=== PATIENT | male | born 1945 | race African-American/Black ===

== ENCOUNTER 2019-04-11 00:49 | Inpatient (IN) | payer MEDICARE, BC ==
[2019-04-11 02:54] LABS: #Basophils 0.1 thou/uL (0.0-0.2); #Eosinphils 0.1 thou/uL (0.0-0.7); #Lymphocytes 1.6 thou/uL (1.20-3.40); #Monocytes 1.3 thou/uL (0.11-0.59); #Neutrophils 10.4 thou/uL (1.40-6.50); %Basophils 0.8 % (0.0-1.0); %Eosinophils 0.6 % (0.0-10.0); %Lymphocytes 12.1 % (21.0-51.0); %Monocytes 9.4 % (0.0-10.0); Mean Corpuscular HGB CONC 34.5 g/dL (32.0-36.0); Mean Corpuscular Hemoglobin 29.9 pg (27.0-31.0); Mean Corpuscular Volume 86.7 fL (78.0-98.0); Mean Platelet Volume 5.9 fL (7.4-10.4); Platelet Count 408 thou/uL (130-400); RBC Distribution Width 11.6 % (11.5-14.5); Red Blood Cell (RBC) Count 5.35 mill/uL (4.70-6.10); White Blood Cell (WBC) Count 13.5 thou/uL (4.8-10.8)
[2019-04-11 03:24] LABS: ALT (SGPT) 13 U/L (8-55); AST (SGOT) 21 U/L (5-34); Albumin 4.7 g/dL (3.4-4.8); Alkaline Phosphatase 76 U/L (40-150); Anion Gap 15 mmol/L (10-20); BUN (Urea Nitrogen) 6 mg/dL (8.4-25.7); Bilirubin, Total 1.1 mg/dL (0.2-1.2); Calc. Creatinine Clearance 0 mL/min (70-130); Calcium 10.2 mg/dL (7.8-10.44); Carbon Dioxide 27 mmol/L (23-31); Chloride 82 mmol/L (98-107); Estimated GFR-MDRD Greater than 90; Globulin 3.6 g/dL (2.4-3.5); Glucose 127 mg/dL (83-110); Potassium 3.8 mmol/L (3.5-5.1); Protein, Total 8.3 g/dL (5.8-8.1); Sodium 120 mmol/L (136-145)
[2019-04-11] MEDS ORDERED: Ondansetron PF 4 MG/2 ML Vial IVP PRN (05:27)
[2019-04-11] MEDS ORDERED: Acetaminophen 325 MG TAB PO PRN (05:27)
[2019-04-11] MEDS ORDERED: Ondansetron ODT 4 MG TAB PO PRN (05:27)
--- NOTE | 2019-04-11 06:02 | PDOC.EVN ---
Event Note - Event Note Event Note: orders cancelled, we do not admit for PT's PCP
[2019-04-11 07:42] LABS: Troponin I Less than 0.010 ng/mL (< 0.028)
[2019-04-11 07:47] VITALS: BMI 21.8
[2019-04-11] MEDS ORDERED: hydrALAZINE 20 MG/ML VIAL SLOW IVP PRN (08:42)
[2019-04-11] MEDS ORDERED: Lorazepam 2 MG/ML VIAL SLOW IVP PRN (08:44)
[2019-04-11] MEDS ORDERED: Enoxaparin Sodium 40 MG/0.4 ML SYRINGE SC SCH (09:00)
[2019-04-11 09:34] LABS: Anion Gap 14 mmol/L (10-20); BUN (Urea Nitrogen) 4 mg/dL (8.4-25.7); Calc. Creatinine Clearance 107 mL/min (70-130); Calcium 9.6 mg/dL (7.8-10.44); Carbon Dioxide 22 mmol/L (23-31); Chloride 90 mmol/L (98-107); Estimated GFR-MDRD Greater than 90; Glucose 121 mg/dL (83-110); Potassium 3.2 mmol/L (3.5-5.1); Sodium 123 mmol/L (136-145)
[2019-04-11 09:52] LABS: Troponin I 0.011 ng/mL (< 0.028)
[2019-04-11] MEDS: hydrALAZINE 25 MG TAB PO SCH ×3 (10:06→21:13)
[2019-04-11] MEDS: Thiamine 100 MG TAB PO SCH (10:07)
[2019-04-11] MEDS: Amlodipine 5 MG TAB PO SCH (10:07)
[2019-04-11] MEDS: Folic Acid 1 MG TAB PO SCH (10:07)
[2019-04-11] MEDS: Multivit, Therapeutic 1 TAB PO SCH (10:07)
[2019-04-11] MEDS: Aspirin Chewable 81 MG TAB PO SCH (10:07)
[2019-04-11 10:57] LABS: Creatinine, Urine 28.25 mg/dL (63-166)
[2019-04-11] MEDS ORDERED: Potassium Chloride 20 MEQ TAB PO SCH (11:00)
--- NOTE | 2019-04-11 11:36 | CON ---
DATE OF CONSULTATION: HISTORY OF PRESENT ILLNESS: Mr. Grimaldo is a 74-year-old black male with known history of chronic hyponatremia, who was admitted due to serum sodium of 120. This is a little worse than his baseline. Of interest, this patient has been taking alcohol on a regular basis. He states he takes about 5 beers a day, but I suspect he is taking more than this. We are here to further evaluate the hyponatremia. I did review his previous lab work and he has been shown to be chronically hyponatremic. He is clinically asymptomatic. REVIEW OF SYSTEMS: No chest pain. No shortness of breath. No diarrhea. No constipation. ? of hematochezia from his hemorrhoids. No fever or chills. No nausea. No vomiting. Appetite and energy level are fair. No tremors. No asterixis. Occasional joint pains. No abdominal pain. No fever or chills. No headache. No diplopia. MEDICATIONS: 1. Norvasc 5 mg daily. 2. Aspirin 81 mg daily. 3. Folvite 1 mg daily. 4. Hydralazine 25 mg p.o. t.i.d. 5. Ativan 1 mg q.4 p.r.n. 6. Toprol-XL 50 mg p.o. b.i.d. 7. Multivitamin daily. 8. Thiamine 100 mg p.o. daily. PAST MEDICAL HISTORY: Hypertension, status post chronic sinusitis, erectile dysfunction, heavy alcohol intake. PAST SURGICAL HISTORY: Status post total ethmoidectomies, status post frontal sinusotomy, status post maxillary antrostomies. 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 He is a -[employer]. Smoked for 30 to 40 years, 1 pack a day. Alcohol, about 5 beers per day. Education, high school. ALLERGIES: NONE. TRAUMA: None. IMMUNIZATION: Unknown. HOSPITALIZATIONS: Please see past medical history. FAMILY HISTORY: Positive family history of ESRD, 1 brother on dialysis. PHYSICAL EXAMINATION: VITAL SIGNS: Blood pressure is noted at 179/83, heart rate 89, respiratory rate 14, temperature 97.5, and pulse ox 99%. GENERAL: Noted to be awake, alert, sitting comfortable, not in distress. SKIN: Adequate turgor. HEENT: Pinkish conjunctivae. Anicteric sclerae. NECK: No neck mass. No carotid bruits. No JVD. CHEST: No deformities. LUNGS: Clear breath sounds. No wheezing. No crackles. HEART: Normal sinus rhythm. No murmur. No gallops. No rubs. ABDOMEN: Globular, soft, nontender. No masses. EXTREMITIES: No edema. No deformities. NEUROLOGICAL: Awake and oriented to 3 spheres. Moving all extremities. No tremors. No asterixis. No ataxia. LABORATORY DATA: Laboratories of April 11, 2019; sodium 123, potassium 3.2, chloride 90, carbon dioxide 22, BUN 4, creatinine 0.68, glucose 121, and calcium 9.6. Troponin I 0.011. April 11, 2019, 2:47 a.m., serum sodium was 120. February 18, 2019, serum sodium was 124. November 19, 2018, TSH was noted at 1.39. ASSESSMENT/PLAN: 1. Chronic hyponatremia-this could be related to alcohol induced. He does take significant amount of alcohol beverage. I did instruct him that he needs to wean off. He was somewhat hesitant to do this outright. Continue free water restriction at least 1.1 to 1.5 L of free water restriction. Serological workup will be ordered to rule out other possible causes of hyponatremia. Cortisol level, uric acid, and serum urine osmolality have been ordered. In addition, a urine sodium, urine creatinine were also ordered. Please note, a TSH was done early this year and it was within normal. There is no indication for any hypertonic saline with this patient since he is completely asymptomatic. 2. Hypertension. Continue current BP medications. 3. We will recheck basic metabolic profile in a.m. Job ID: [id number]
--- NOTE | 2019-04-11 14:57 | HP ---
PRIMARY CARE PHYSICIAN: Dr. Eduard Hansen. CHIEF COMPLAINT: Weakness, dizziness. HISTORY OF PRESENT ILLNESS: This is a 74-year-old gentleman patient of Dr. Eduard Hansen who last saw him in February 2019 who presented to the emergency department with sudden onset of feeling weak, dizzy, and confused at about 11:00 p.m. last night. The patient states that he had been in his usual state of health. He does admit to regular alcohol intake, usually including beer about 5-6 everyday. After discussion with Dr. Hansen, he recently has begun to cut down to 1-2 a day over the past few days. In the emergency department, he was found to have a low sodium level of 120 and is now being admitted for further evaluation of that. The patient has been seen by Dr. Hansen as an outpatient for blood in his stool. He had scheduled outpatient colonoscopy, but uncertain to when it is to be. He states that he has not had any further blood in his stool lately. Has not had colon cancer screening in the past either. PAST MEDICAL HISTORY: Hypertension, alcohol abuse, marijuana abuse, chronic sinusitis, history of hyponatremia in the past. MEDICATIONS: Include: 1. Metoprolol 50 mg b.i.d. 2. Amlodipine 5 mg daily. 3. Hydrochlorothiazide 25 mg daily. 4. Lamisil. 5. Hydralazine 25 mg t.i.d. 6. Viagra p.r.n. ALLERGIES: NO KNOWN DRUG ALLERGIES. PAST SURGICAL HISTORY: Bilateral sinus surgery, total ethmoidectomies, maxillary surgeries, frontal sinusotomy by Dr. Negrito Macdonald, cystoscopy with bladder wash in 2014. FAMILY HISTORY: Mother and father . Brother with end-stage renal disease from diabetes. SOCIAL HISTORY: He does not work. Positive for daily beer intake 4-5 a day, daily marijuana use. No cocaine. No IV drugs. Retired from the [employer]. REVIEW OF SYSTEMS: As per the history of present illness. CONSTITUTIONAL: He denies any recent fevers, chills, or recent illness. HEENT: He denies headache, visual or hearing changes. No recent upper respiratory symptoms. CARDIAC: Denies chest pain, shortness of breath or palpitations. PULMONARY: Denies cough or hemoptysis. GI: Denies nausea, vomiting, abdominal pain, melena, hematochezia. : Denies dysuria, hematuria. NEUROLOGIC: Positive generalized weakness and dizziness, some confusion, which appears to have resolved. PHYSICAL EXAMINATION: VITAL SIGNS: Temperature 97.5, pulse of 99, respirations 14, blood pressure 187/87, but has not taken his medicines in the last few days. GENERAL: He is awake and alert. Speech is clear. Mucosa is moist. NECK: Supple. HEART: Regular rate and rhythm. LUNGS: Clear. ABDOMEN: Soft. No rebound. No guarding. No peritoneal signs. EXTREMITIES: No clubbing, cyanosis, or edema. 2+ peripheral pulses. LABORATORY DATA: From last night, sodium 120, potassium 3.8, chloride 82, CO2 27, BUN and creatinine 6 and 0.81, GFR greater than 90, glucose of 127, calcium of 10.2. AST and ALT are normal. Troponin Is are negative. Albumin 4.7. White blood cell count 13,500, hemoglobin hematocrit 16 and 46.4, and platelets of 408. ASSESSMENT/PLAN: 1. This is a 74-year-old gentleman with a history of uncontrolled hypertension, alcohol abuse and regular marijuana intake, who presents with recurrent episode of hyponatremia. Plan: We will place on fluid restriction orally as well as normal saline drip and monitor closely for slow resolution of his sodium level. We will also check urine osmolality to watch for his sodium deficit. 2. Hypertension. We will restart his medicines and start hydralazine p.r.n. We will discontinue hydrochlorothiazide to help prevent hyponatremia. 3. Regular beer intake, likely contributing to the hyponatremia. I will watch for withdrawal symptoms and start Ativan p.r.n. agitation. We will also start multivitamin, thiamine and folic acid. 4. Remote history of blood in his stool. I will follow hemoglobin hematocrit. We will consult Gastroenterology for colonoscopy if he has positive guaiac in his stool or if he becomes more anemic. Job ID: [id number]
[2019-04-12 04:52] LABS: #Basophils 0.1 thou/uL (0.0-0.2); #Eosinphils 0.3 thou/uL (0.0-0.7); #Lymphocytes 1.8 thou/uL (1.20-3.40); #Neutrophils 8.5 thou/uL (1.40-6.50); %Basophils 0.7 % (0.0-1.0); %Eosinophils 2.5 % (0.0-10.0); %Lymphocytes 15.7 % (21.0-51.0); %Monocytes 8.4 % (0.0-10.0); %Neutrophils 72.7 % (42.0-75.0); Hemoglobin 14.3 g/dL (14.0-18.0); Mean Corpuscular HGB CONC 34.2 g/dL (32.0-36.0); Mean Corpuscular Hemoglobin 30.1 pg (27.0-31.0); Mean Corpuscular Volume 87.8 fL (78.0-98.0); Platelet Count 395 thou/uL (130-400); RBC Distribution Width 11.7 % (11.5-14.5); Red Blood Cell (RBC) Count 4.77 mill/uL (4.70-6.10); White Blood Cell (WBC) Count 11.7 thou/uL (4.8-10.8)
[2019-04-12 05:13] LABS: ALT (SGPT) 13 U/L (8-55); AST (SGOT) 16 U/L (5-34); Albumin 3.9 g/dL (3.4-4.8); Alkaline Phosphatase 63 U/L (40-150); Anion Gap 14 mmol/L (10-20); BUN (Urea Nitrogen) 10 mg/dL (8.4-25.7); Bilirubin, Total 0.6 mg/dL (0.2-1.2); Calc. Creatinine Clearance 80 mL/min (70-130); Calcium 9.5 mg/dL (7.8-10.44); Carbon Dioxide 22 mmol/L (23-31); Chloride 95 mmol/L (98-107); Estimated GFR-MDRD Greater than 90; Globulin 3.4 g/dL (2.4-3.5); Glucose 141 mg/dL (83-110); Potassium 3.6 mmol/L (3.5-5.1); Protein, Total 7.3 g/dL (5.8-8.1); Sodium 127 mmol/L (136-145); Uric Acid 5.4 mg/dL (3.5-7.2)
[2019-04-12] MEDS: hydrALAZINE 25 MG TAB PO SCH (09:22)
[2019-04-12] MEDS: Aspirin Chewable 81 MG TAB PO SCH (09:22)
[2019-04-12] MEDS: Multivit, Therapeutic 1 TAB PO SCH (09:23)
[2019-04-12] MEDS: Folic Acid 1 MG TAB PO SCH (09:23)
[2019-04-12] MEDS: Thiamine 100 MG TAB PO SCH (09:23)
[2019-04-12] MEDS: Amlodipine 5 MG TAB PO SCH (09:23)
--- NOTE | 2019-04-12 09:54 | PRG ---
DATE OF SERVICE: 04/12/2019 SUBJECTIVE: Mr. Grimaldo is a 74-year-old black male, who was seen for his chronic hyponatremia. We felt that his hyponatremia is alcohol induced. I had a long discussion with the patient regarding discontinuing alcohol. He will try to comply with this. No new complaints today. No chest pain or shortness of breath. OBJECTIVE: VITAL SIGNS: Blood pressure 144/74, heart rate 72, respiratory rate 18, temperature 98.7, and pulse ox 95%. GENERAL: Awake, alert, and comfortable, not in distress. SKIN: Adequate turgor. HEENT: He has pinkish conjunctivae. Anicteric sclerae. NECK: No neck mass. No carotid bruits. No JVD. CHEST: No deformities. LUNGS: Clear breath sounds. No wheezing. No crackles. HEART: Normal sinus rhythm. No murmur. No gallops. No rubs. ABDOMEN: Globular, soft, and nontender. No masses. EXTREMITIES: No edema. No deformities. MEDICATIONS: Medications of April 12, 2019, reviewed. LABORATORY DATA: Laboratories of April 12, 2019, white count 11.7 and hemoglobin 14.3. Sodium 127, potassium 3.6, chloride 95, carbon dioxide 22, BUN is 10, creatinine 0.91, glucose 141, uric acid 5.4, normal calcium 9.5, AST 16, ALT 13, and albumin 3.9. TSH 1.5. Cortisol level 9.5. Urine sodium is 63 and urine creatinine is 28. ASSESSMENT AND PLAN: Hyponatremia - chronic in nature. Continue free water restriction. This is most likely alcohol-induced. There is already significant improvement in the serum sodium from a low of 120 to a most recent value of 127 with free water restriction. There is no indication for any hypertonic saline or tolvaptan for the moment. Again, reinforced on alcohol reduction with this patient or cessation from alcoholic intake. Long discussion was done with the patient. Agree with current management. Recheck basic metabolic in a.m. or consider for discharge today. Job ID: [id number]
[2019-04-12 11:32] VITALS: BP 119/71; TEMP 97.8
--- NOTE | 2019-04-12 13:08 | DIS ---
DATE OF ADMISSION: 04/11/2019 DATE OF DISCHARGE: 04/12/2019 PRIMARY CARE PHYSICIAN: Dr. Eduard Hansen. ADMISSION DIAGNOSES: 1. Hyponatremia. 2. Hypertension. 3. Alcohol abuse. 4. History of blood in stool. DISCHARGE DIAGNOSIS: Hyponatremia, improved. OTHER DIAGNOSES: 1. Onychomycosis. 2. Rash and hives. CONSULTATION: Dr. Mau Clinton for Nephrology. HOSPITAL COURSE: This is a 74-year-old gentleman, who presented to the emergency department with complaints of feeling weak and dizzy and confused. He states that he has been slowly cutting down on his beer intake from 5 to 6 everyday down to 1 to 2. In the emergency department, he was found to have a sodium of 120 and was admitted for further evaluation of that. As of note, he had been undergoing a workup for blood in his stool for the past several months. He has outpatient colonoscopy scheduled. Of note, he also has had a rash on and off, uncertain if it is due to medications. This has been worked up by Dr. Hansen as an outpatient as well. The patient was admitted. He was placed on 1500 mL fluid restriction. No hyponatremic fluids were necessary. Dr. Clinton saw the patient in evaluation, agreed with fluid restriction, and his sodium continued to improve slowly. The patient tolerated it well. No signs of mental status change. He seemed to improve. Throughout his hospitalization, his blood pressure remained stable as well. Hydrochlorothiazide was discontinued to try to avoid the hyponatremia as well. No further episodes of blood in the stool during the hospitalization. Once his sodium level remained stable, Dr. Clinton felt like he was stable for discharge home with further workup as an outpatient for the blood in the stool. DISCHARGE PHYSICAL EXAMINATION: VITAL SIGNS: Temperature 98.7, pulse is 72, respirations 18, blood pressure 144/74, and pulse ox 95% on room air. GENERAL: He is awake and alert, in no acute distress. Speech is clear. Mucosa is moist. NECK: Supple. HEART: Regular rate and rhythm. LUNGS: Clear. ABDOMEN: Soft. EXTREMITIES: With trace edema. Scattered red splotches on his legs, which seemed to improve with topical steroids per the patient. DISCHARGE LABORATORY DATA: White blood cell count 11,700, hemoglobin and hematocrit are 14.3 and 41.9, and platelets of 395. Sodium 127, improved from 120. Potassium 3.6, chloride 95, CO2 of 22, BUN and creatinine are 10 and 0.91, with a GFR greater than 90, serum glucose of 141. TSH of 1.5. Cortisol of 9.5. DISCHARGE MEDICATIONS: Include; 1. Norvasc 5 mg daily. 2. Aspirin 81 mg daily. 3. Hydralazine 25 mg t.i.d. 4. Metoprolol 50 mg b.i.d. 5. Multivitamin daily. 6. Thiamine 100 mg daily. 7. Folic acid 1 mg daily. FOLLOWUP INSTRUCTIONS: The patient to follow up with Dr. Hansen in one week to recheck his labs and check his blood pressure. Also arrangements were made for Podiatry evaluation for his onychomycosis and poor foot care. Job ID: [id number]
== END 2019-04-12 14:10 | disposition home or self-care (01) | DRG 641 ==
LOC: ERS 00:49 → 2NO 07:42
PROVIDERS: ADMIT Family Medicine; ATTEND Family Medicine
DX: E87.1 Hypo-osmolality and hyponatremia (principal); I10 Essential (primary) hypertension; F10.10 Alcohol abuse, uncomplicated; F12.10 Cannabis abuse, uncomplicated; J32.9 Chronic sinusitis, unspecified; F17.210 Nicotine dependence, cigarettes, uncomplicated; B35.1 Tinea unguium; L50.9 Urticaria, unspecified; N52.9 Male erectile dysfunction, unspecified; Z79.899 Other long term (current) drug therapy
CPT/HCPCS: 36415; 80053; 82274; 82533; 82570; 83930; 83935; 84300; 84443; 84484; 84550; 85025; 93005; 96360; 96361; J2060